=== PATIENT | female | born 1995 | race Hispanic/Latino ===

== ENCOUNTER 2017-07-04 13:31 | Emergency (ER) | payer OTHER, SELFPAY ==
--- NOTE | 2017-07-04 14:48 | ER ---
Nurse's Notes [facility] Unit Name: Carloz Rolle Age: 22 yrs Sex: Female : 1995 Arrival Date: 07/04/2017 Time: 13:34 Bed 13 Private MD: Diagnosis: Weakness Presentation: 07/04 13:42 Presenting complaint: Patient states: " Yesterday both of my hands and arms started ph feeling numb and heavy. It strted to feel like it was moving into my legs but they feel okay right now." Pt reports sage arm tingling and dizziness, picc nurse equal and strong, denies chest pain, SOB. Transition of care: patient was not received from another setting of care. Onset of symptoms was July 04, 2017. Risk Assessment: Do you want to hurt yourself or someone else? Patient reports no desire to harm self or others. Initial Sepsis Screen: Does the patient meet any 2 criteria? No. Patient's initial sepsis screen is negative. Does the patient have a suspected source of infection? No. Patient's initial sepsis screen is negative. Care prior to arrival: None. 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 - Social history:: Smoking status: Patient/guardian denies using tobacco. - Family history:: not pertinent. - Ebola Screening: : Patient denies travel to an Ebola-affected area in the 21 days before illness onset. Screenin:02 Abuse screen: Denies threats or abuse. Nutritional screening: No deficits noted. tw2 Tuberculosis screening: No symptoms or risk factors identified. Fall Risk None identified. Assessment: 14:50 General: Appears in no apparent distress. well groomed, Behavior is calm, cooperative, tw2 appropriate for age. Pain: Denies pain. Neuro: Level of Consciousness is awake, alert, obeys commands, Oriented to person, place, time, situation, Supervisor Film Processing are equal bilaterally Reports numbness since yesterday b/l hands. Cardiovascular: Denies chest pain, shortness of breath, Capillary refill < 3 seconds Patient's skin is warm and dry. Respiratory: Airway is patent Respiratory effort is even, unlabored, Respiratory pattern is regular, symmetrical. GI: No signs and/or symptoms were reported involving the gastrointestinal system. : No signs and/or symptoms were reported regarding the genitourinary system. EENT: No signs and/or symptoms were reported regarding the EENT system. Derm: No signs and/or symptoms reported regarding the dermatologic system. Skin is intact, is healthy with good turgor, Skin temperature is warm. Musculoskeletal: Circulation, motion, and sensation intact. Capillary refill < 3 seconds, Range of motion: intact in all extremities. 15:03 Reassessment: Patient appears in no apparent distress at this time. No changes from tw2 previously documented assessment. Patient and/or family updated on plan of care and expected duration. Pain level reassessed. Patient is alert, oriented x 3, equal unlabored respirations, skin warm/dry/pink. Vital Signs: 13:44 BP 123 / 91; Pulse 71; Resp 18; Temp 97.2; Pulse Ox 100% on R/A; Weight 71.67 kg; ph Height 5 ft. 2 in. (157.48 cm); 15:05 BP 125 / 76; Pulse 68; Resp 16; Pulse Ox 100% on R/A; tw2 13:44 Body Mass Index 28.90 (71.67 kg, 157.48 cm) ph NIH Stroke Scale Scores: 14:46 NIHSS Score: 0 helen ED Course: 13:34 Patient arrived in ED. mr 13:44 Triage completed. ph 13:45 Arm band placed on. ph 13:57 Yves Samayoa MD is Attending Physician. helen 13:59 Cecelia Harris, SALLY is Primary Nurse. tw2 14:50 Bed in low position. Call light in reach. Adult w/ patient. Pulse ox on. NIBP on. tw2 15:07 No provider procedures requiring assistance completed. Patient did not have IV access tw2 during this emergency room visit. Administered Medications: No medications were administered Outcome: 14:47 Discharge ordered by . helen 15:07 Discharged to home ambulatory, with significant other. tw2 15:07 Condition: stable 15:07 Discharge instructions given to patient, significant other, Instructed on discharge instructions, follow up and referral plans. Demonstrated understanding of instructions, follow-up care. 15:08 Patient left the ED. tw2 NIH Stroke Scale - NIH Stroke Score Date: 07/04/2017 Time: 14:46 Total Score = 0 1a. Level of Consciousness (LOC) - 0(Alert) 1b. Level of Consciousness (LOC) (Year \\T\\ Age) - 0(Both) 1c. LOC Commands (Open \\T\\ Closes Eyes/Oral And Maxillofacial Surgeon) - 0(Both) 2. Best Gaze (Lateral Gaze Paresis) - 0(Normal) 3. Visual Field Loss - 0(No visual loss) 4. Facial Palsy - 0(Normal) 5a. Left Arm: Motor (10-second hold) - 0(No drift) 5b. Right Arm: Motor (10-second hold) - 0(No drift) 6a. Left Leg: Motor (5-second hold - always test supine) - 0(No drift) 6b. Right Leg: Motor (5-second hold - always test supine) - 0(No drift) 7. Limb Ataxia (finger/nose \\T\\ heel/foss - test with eyes open) - 0(Absent) 8. Sensory Loss (pinprick arms/legs/face) - 0(Normal) 9. Best Language: Aphasia (description/naming/reading) - 0(No aphasia) 10. Dysarthria (speech clarity - read or repeat words) - 0(Normal) 11. Extinction and Inattention (visual/tactile/auditory/spatial/personal) - 0(No abnormality) Initials: helen Signatures: Yves Samayoa MD MD cha Rivera, Maria mr Michelle Alcantar, SALLY ZAVALA Cecelia Harris RN RN tw2
--- NOTE | 2017-07-04 14:48 | EDPHYS ---
Physician Documentation [facility] Name: Carloz Rolle Age: 22 yrs Sex: Female : 1995 Arrival Date: 07/04/2017 Time: 13:34 Bed 13 Private MD: ED Physician Yvse Samayoa HPI: 07/04 14:41 This 22 yrs old Female presents to ER via Ambulatory with complaints of helen Numbness Of Hand. 14:41 The patient or guardian reports weakness. The complaints affect the left hand helen diffusely, right hand diffusely. Context: The problem was sustained at an unknown location. Onset: The symptoms/episode began/occurred 2 day(s) ago. Modifying factors: The symptoms are alleviated by nothing, the symptoms are aggravated by nothing. Associated signs and symptoms: The patient has no apparent associated signs or symptoms. Severity of symptoms: At their worst the symptoms were mild, in the emergency department the symptoms are unchanged. The patient has not experienced similar symptoms in the past. 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 - Social history:: Smoking status: Patient/guardian denies using tobacco. - Family history:: not pertinent. - Ebola Screening: : Patient denies travel to an Ebola-affected area in the 21 days before illness onset. ROS: 14:41 Constitutional: Negative for fever, chills, and weight loss, Eyes: Negative for injury, helen pain, redness, and discharge, ENT: Negative for injury, pain, and discharge, Neck: Negative for injury, pain, and swelling, Cardiovascular: Negative for chest pain, palpitations, and edema, Respiratory: Negative for shortness of breath, cough, wheezing, and pleuritic chest pain, Abdomen/GI: Negative for abdominal pain, nausea, vomiting, diarrhea, and constipation, Back: Negative for injury and pain, : Negative for injury, bleeding, discharge, and swelling, Skin: Negative for injury, rash, and discoloration, Neuro: Negative for headache, weakness, numbness, tingling, and seizure, Psych: Negative for depression, anxiety, suicide ideation, homicidal ideation, and hallucinations, Allergy/Immunology: Negative for hives, rash, and allergies, Endocrine: Negative for neck swelling, polydipsia, polyuria, polyphagia, and marked weight changes, Hematologic/Lymphatic: Negative for swollen nodes, abnormal bleeding, and unusual bruising. 14:41 MS/extremity: Positive for generalized weakness. Exam: 14:41 Constitutional: This is a well developed, well nourished patient who is awake, alert, helen and in no acute distress. Head/Face: Normocephalic, atraumatic. Eyes: Pupils equal round and reactive to light, extra-ocular motions intact. Lids and lashes normal. Conjunctiva and sclera are non-icteric and not injected. Cornea within normal limits. Periorbital areas with no swelling, redness, or edema. ENT: Nares patent. No nasal discharge, no septal abnormalities noted. Tympanic membranes are normal and external auditory canals are clear. Oropharynx with no redness, swelling, or masses, exudates, or evidence of obstruction, uvula midline. Mucous membranes moist. Neck: Trachea midline, no thyromegaly or masses palpated, and no cervical lymphadenopathy. Supple, full range of motion without nuchal rigidity, or vertebral point tenderness. No Meningismus. Chest/axilla: Normal chest wall appearance and motion. Nontender with no deformity. No lesions are appreciated. Cardiovascular: Regular rate and rhythm with a normal S1 and S2. No gallops, murmurs, or rubs. Normal PMI, no JVD. No pulse deficits. Respiratory: Lungs have equal breath sounds bilaterally, clear to auscultation and percussion. No rales, rhonchi or wheezes noted. No increased work of breathing, no retractions or nasal flaring. Abdomen/GI: Soft, non-tender, with normal bowel sounds. No distension or tympany. No guarding or rebound. No evidence of tenderness throughout. Back: No spinal tenderness. No costovertebral tenderness. Full range of motion. Skin: Warm, dry with normal turgor. Normal color with no rashes, no lesions, and no evidence of cellulitis. MS/ Extremity: Pulses equal, no cyanosis. Neurovascular intact. Full, normal range of motion. Neuro: Awake and alert, GCS 15, oriented to person, place, time, and situation. Cranial nerves II-XII grossly intact. Motor strength 5/5 in all extremities. Sensory grossly intact. Cerebellar exam normal. Normal gait. Psych: Awake, alert, with orientation to person, place and time. Behavior, mood, and affect are within normal limits. 14:45 Musculoskeletal/extremity: DVT Exam: No signs of deep vein thrombosis. no pain, no helen swelling, no tenderness, negative Homans' sign noted on exam, no appreciated bluish discoloration, no erythema, no increased warmth. Vital Signs: 13:44 BP 123 / 91; Pulse 71; Resp 18; Temp 97.2; Pulse Ox 100% on R/A; Weight 71.67 kg; ph Height 5 ft. 2 in. (157.48 cm); 15:05 BP 125 / 76; Pulse 68; Resp 16; Pulse Ox 100% on R/A; tw2 13:44 Body Mass Index 28.90 (71.67 kg, 157.48 cm) ph NIH Stroke Scale Scores: 14:46 NIHSS Score: 0 helen MDM: 13:57 Patient medically screened. [facility] 14:46 Data reviewed: vital signs, nurses notes. [facility] 07/04 15:02 Order name: Urine Dipstick--Ancillary (enter results) 07/04 15:02 Order name: Urine --Ancillary (enter results) 07/04 14:41 Order name: Urine Dipstick-Ancillary (obtain specimen); Complete Time: 14:58 [facility] 07/04 14:41 Order name: Urine Test (obtain specimen); Complete Time: 14:58 [facility] Administered Medications: No medications were administered Disposition: 07/04/17 14:47 Discharged to Home. Impression: Weakness. - Condition is Stable. - Discharge Instructions: Weakness, Fatigue, Weakness, [id number]. - Medication Reconciliation Form, Thank You Letter, Antibiotic Education, Prescription Opioid Use form. - Follow up: Private Physician; When: 2 - 3 days; Reason: Recheck today's complaints, Continuance of care, Re-evaluation by your physician. - Problem is new. - Symptoms have improved. NIH Stroke Scale - NIH Stroke Score Date: 07/04/2017 Time: 14:46 Total Score = 0 1a. Level of Consciousness (LOC) - 0(Alert) 1b. Level of Consciousness (LOC) (Year \T\ Age) - 0(Both) 1c. LOC Commands (Open \T\ Closes Eyes/Investigative Writer) - 0(Both) 2. Best Gaze (Lateral Gaze Paresis) - 0(Normal) 3. Visual Field Loss - 0(No visual loss) 4. Facial Palsy - 0(Normal) 5a. Left Arm: Motor (10-second hold) - 0(No drift) 5b. Right Arm: Motor (10-second hold) - 0(No drift) 6a. Left Leg: Motor (5-second hold - always test supine) - 0(No drift) 6b. Right Leg: Motor (5-second hold - always test supine) - 0(No drift) 7. Limb Ataxia (finger/nose \T\ heel/foss - test with eyes open) - 0(Absent) 8. Sensory Loss (pinprick arms/legs/face) - 0(Normal) 9. Best Language: Aphasia (description/naming/reading) - 0(No aphasia) 10. Dysarthria (speech clarity - read or repeat words) - 0(Normal) 11. Extinction and Inattention (visual/tactile/auditory/spatial/personal) - 0(No abnormality) Initials: [facility] Signatures: Dispatcher [employer] EDYves Clark MD MD cha Hall, Patricia, RN RN Cecelia Harris RN RN tw2 Corrections: (The following items were deleted from the chart) 15:08 14:47 07/04/2017 14:47 Discharged to Home. Impression: Weakness. Condition is tw2 Stable. Forms are Medication Reconciliation Form, Thank You Letter, Antibiotic Education, Prescription Opioid Use. Follow up: Private Physician; When: 2 - 3 days; Reason: Recheck today's complaints, Continuance of care, Re-evaluation by your physician. Problem is new. Symptoms have improved. helen
[2017-07-04 15:07] LABS: Urine Blood NEGATIVE (NEG); Urine Glucose NEGATIVE (NEG); Urine Protein NEGATIVE (NEG); Urine Specific Gravity 1.015 (1.005-1.030)
== END 2017-07-04 15:08 | disposition home or self-care (01) ==
LOC: ER 13:31
DX: R53.1 Weakness (principal); Z91.018 Allergy to other foods
CPT/HCPCS: 81003; 81025; 99283

== ENCOUNTER 2019-03-31 00:54 | Emergency (ER) | payer OTHER, SELFPAY ==
--- OUTSIDE RECORDS SUMMARY | 2019-03-31 00:56 | XMS REPORT ---
:1995 [facility] [address] [place] [address] [place] [id number] Care Team Providers Name Role Phone Unavailable Unavailable Unavailable Problems This patient has no known problems. Allergies, Adverse Reactions, Alerts This patient has no known allergies or adverse reactions. Medications This patient has no known medications. Results Test Description Test Time Test Comments Text Results Atomic Results Result Comments BREAST ULTRASOUND 2018-07-11 15:32:05 - BREAST ULTRASOUND BILATERAL BILATERALULTRASOUND OF BOTH BREASTS AND BOTH AXILLA: 07/11/2018CLINICAL: 6 month follow up. Comparison is made to exams dated 12/27/2017 ultrasound and 01/16/2018 ultrasound - [facility]-. Real-time ultrasound of both breasts and both axilla was performed. A 2.6 x 2.7 x 3.3 cm oval mass with microlobulated margin is noted in the right breast at 5 o'clock, 7 cm from the nipple. 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 It is slightly increased in size compared to the previous ultrasound where it measured up to 3.1 cm in greatest diameter.A 3.8 x 3.6 x 3.6 cm oval hypoechoic mass with circumscribed margin is noted in the left breast at 3 o'clock, 2 cm from the nipple. It corresponds to the previously biopsied Fibroepithelial lesion with features of fibroadenoma. It is grossly unchanged compared to the previous ultrasound.Multiple bilateral oval masses with circumscribed margin are again noted, grossly unchanged compared to the previous ultrasounds. Except for a 3.0 x 3.0 x 2.0 cm oval hypoechoic mass in the right breast at 2 o'clock, 3 cm from the nipple, which has increased in size compared to the previous ultrasound where it measured up to 2.7 cm in greatest diameter.No other abnormalities were seen sonographically in either breast or either axilla. 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 Surgical consultation was recommended for excision the recommendation remains the same. The 3.8 cm mass in the left breast at 3 o'clock, 2 cm from the nipple corresponds to the previous the biopsied abnormality yielding fibroepithelial lesion with features of fibroadenoma. Given the size of this mass is surgical consultation was recommended and the recommendation remains the same. The 3.0 cm oval mass in the right breast at 2 o'clock, 3 cm from the nipple has slightly increased in size compared to the previous ultrasound were measured up to 2.7 cm. The remaining masses are grossly unchanged and are probably benign. A follow-up ultrasound in 6 months is recommended to demonstrate one-year of stability. Юлия Connor M.D. cc/:07/11/2018 15:32:05 Entry: - 07/13/2018 14:11:56copy to: Ms. Julianne Schuster, [facility] [address], ATTN: Julianne Schuster, ph: [phone], fax: [phone] Technologist: Josie QUINTEROS, [facility]-letter sent: Short Term Follow Up Ultrasound BI-RADS: 3 Probably benign BREAST ULTRASOUND CORE 2018-01-18 10:32:41 - BREAST ULTRASOUND CORE BIOPSY BIOPSY LEFT LEFTULTRASOUND GUIDED BIOPSY LEFT BREAST WITH MARKING DEVICE INSERTED AND POST ULTRASOUND IMAGIN01/16/2018CLINICAL: The 3.1 cm lobulated mass in the right breast at 5 o'clock, middle depth is at a low suspicion for malignancy. An ultrasound guided biopsy is recommended. The 4.1 cm oval mass in the left breast at 3 o'clock, middle depth is at a low suspicion for malignancy. An ultrasound guided biopsy is recommended. PATIENT CONSENT: The procedure along with risks, benefits, alternatives, anesthesia, plan and tissue marker placement were discussed with the patient. Following this, signed, witnessed informed concent was obtained. Comparison is made to exams dated 12/27/2017 ultrasound - [facility]- and 01/06/2015 ultrasound - [facility]. An ultrasound guided biopsy using real-time ultrasound was performed for the circumscribed oval mass located in the left breast at 3 o'clock, middle depth, 2 cm from the nipple. The skin was prepped in the usual manner. Local anesthetic was administered to the access site. A small incision was made in the breast. The abnormality was approached from the lateral aspect. A 14 gauge biopsy needle was placed adjacent to the abnormality through an introducer device under ultrasound guidance. Once the needle was documented to be in the correct location, three specimens were obtained using a Anywhere to Go biopsy device. A heart-shaped clip was inserted into the biopsy cavity. Post procedure ultrasound imaging was obtained. The specimens were sent to the laboratory for pathological analysis. IMPRESSION: ULTRASOUND GUIDED BIOPSYUltrasound guided biopsy of the mass in the left breast at 3 o'clock, middle depth, 2 cm from the nipple was successful. Waiting for pathology results. A final report will be issued when these become available. ADDENDUM:Pathology report the following:A. 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 Left breast 3 o'clock, 2 cm from the nipple biopsy:FIBROEPITHELIAL LESION WITH FEATURES OF FIBROADENOMAThe finding is concordant with imaging. A surgical consultation is recommended for excision of a phyllodes tumor on the right. Given the size of the mass in the left breast and the possibility of phyllodes tumor a surgical consult is also recommended.The patient should also return for follow-up of the additional smaller visualized masses with ultrasound in 6 months.Юлия Connor M.D. cc/:01/18/2018 10:32:41 Entry: cc - 01/19/2018 11:30:10copy to: Ms. Val Schuster, [facility] [address], ph: [phone], fax: [phone] Technologist: Kristen Medrano, [facility]-letter sent: Surgical Consult Recommended BREAST ULTRASOUND 2017-12-27 13:22:23 - BREAST ULTRASOUND BILATERAL BILATERALULTRASOUND OF BOTH BREASTS AND BOTH AXILLA: 12/27/2017CLINICAL: Bilateral breast masses, increasing in size. Comparison is made to exam dated 01/06/2015 ultrasound - [facility]. Real-time ultrasound of both breasts and both axilla was performed. There is a 3.1 x 2.0 x 1.9 cm lobulated mass with a circumscribed margin in the right breast at 5 o'clock, middle depth, 7 cm from the nipple. This lobulated mass is hypoechoic. Color flow imaging demonstrates that there is vascularity present. This mass is palpable and the patient reports is new. It was not visualized on previous ultrasounds.There is a 4.1 x 2.7 x 2.8 cm oval mass with a circumscribed margin in the left breast at 3 o'clock, middle depth, 2 cm from the nipple. This oval mass is hypoechoic. It correlates with the enlarging mass palpated by the patient. Color flow imaging demonstrates that there is vascularity present. This mass has increased in size compared to the previous ultrasound where it measured up to 1.9 cm.Several other masses are noted bilaterally as follows:Left breast:1.4 x 1.5 x 0.9 cm mass at 12 o'clock, 4 cm from the nipple, stable since [address] adjacent masses measuring 1.2 x 1.1 x 0.6 cm and 0.9 x 0.5 by 1.0 cm at 12 o'clock, 1 cm from the nipple0.7 x 0.8 x 0.4 cm mass at 12-1 o'clock, 2 cm from the nipple, stable since 2014. Other additional masses measuring 1.0 x 0.3 x 0.5 cm and 0.6 x 0.6 x 0.4 cm are noted in this same location.0.8 x 0.9 x 0.5 cm mass at 3 o'clock, 1 cm from the nipple0.9 x 0.6 x 0.7 cm mass at 5 o'clock, 3 cm from the nipple0.9 x 0.5 x 1.2 cm mass at 7 o'clock, 3 cm from the nipple0.8 x 0.4 x 0.8 cm mass at 9 o'clock, 5 cm from the nippleRight breast:1.8 x 1.6 x 1.4 cm mass at 12 o'clock, 4 cm from the nipple, unchanged since [address].4 x 1.4 x 0.8 cm mass at 12 o'clock, 2 cm from the nipple, grossly unchanged since 2015. A new oval mass measuring 1.6 x 1.2 x 1.6 cm is also noted in this same location1.1 x 1.1 x 0.7 cm mass at 12-1 o'clock, 4 cm from the nipple2 adjacent masses measuring 1.6 x 1.7 x 1.1 cm and 2.4 x 1.7 x 2.7 cm at 2 o'clock, 3 cm from the nipple, grossly unchanged compared to the previous ultrasound.2.3 x 0.7 x 2.3 cm mass at 8 o'clock, 3 cm from the nipple, stable since [address].7 x 0.4 x 0.8 cm mass at 9 o'clock, 1 cm from the nipple0.9 x 0.5 x 0.9 cm mass at 11 o'clock, 3 cm from the nippleNo other abnormalities were seen sonographically in either breast or either axilla. IMPRESSION: SUSPICIOUS OF MALIGNANCY - FOLLOW-UP RECOMMENDEDThe 3.1 cm lobulated mass in the right breast at 5 o'clock, middle depth is at a low suspicion for malignancy. An ultrasound guided biopsy is recommended. The 4.1 cm oval mass in the left breast at 3 o'clock, middle depth is at a low suspicion for malignancy. An ultrasound guided biopsy is recommended. The masses in the right breast at 12 o'clock, 4 cm from the nipple, 12 o'clock, 2 cm from the nipple and 2 o'clock, 3 cm from the nipple and left breast at 12 o'clock, 4 cm from the nipple and 12-1 o'clock, 2 cm from the nipple are stable since 2014 and are benign per stability. The remaining masses are probably benign. Ultrasound is recommended in 6 months to document stability.Юлия Connor M.D. cc/:12/27/2017 13:22:23 Entry: cc - 01/04/2018 12:27:08copy to: Ms. Val Schuster, [facility] [address], ph: [phone], fax: [phone] Technologist: Mindi QUINTEROS, [facility]-RGletter sent: BIRADS 4/5 Biopsy Ultrasound BI-RADS: 4a Suspicious abnormality - low suspicion for malignancy
--- OUTSIDE RECORDS SUMMARY | 2019-03-31 00:56 | XMS REPORT | Summary of Care ---
:1995 Author Organization [facility] - [facility] Address [address] [place] [address] Care Team Providers Name Role Phone Rayne Ramos Primary Care Provider Reason for Referral (Routine) Status Reason Specialty Diagnoses / Referred By Referred To Procedures Contact Contact New Request Surgery Diagnoses Lump or mass in breast Claudine Winston, Procedures CONSULT/REFERRAL BREAST SURGERY [address] [address] Reason for Visit Reason Comments Breast Problem (Routine) Status Reason Specialty Diagnoses / Referred By Referred To Procedures Contact Contact New Request Obstetrics & Diagnoses Lump or mass in breast Richard, Gynecology Procedures CONSULT/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 (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) SARAHY Tellez [address] [place] [address] Encounter Details Date Type Department Care Team Description 09/22/2018 Office Visit [facility] Claudine Winston MD [address] [address] Lump or mass in [facility] Resident breast (Primary Dx) [facility] [address] [facility], 7th [place] [address] Allergies No Known Allergiesdocumented as of this encounter (statuses as of 09/22/2018) Medications No known medicationsdocumented as of this encounter (statuses as of 09/22/2018) Active Problems Problem Noted Date Nexplanon in place 07/01/2017 Obesity (BMI 30.0-34.9) 06/22/2016 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 documented as of this encounter (statuses as of 09/22/2018) Resolved Problems Problem Noted Date Resolved Date Nexplanon insertion 09/29/2016 07/01/2017 Other general counseling and advice for contraceptive 09/02/2016 07/01/2017 management BMI 26.0-26.9,adult 06/25/2015 06/22/2016 Acute cystitis without hematuria 06/25/2015 06/22/2016 General counseling and advice for contraceptive management 06/14/20142016 Overview: ICD10 Diagnosis Term 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 Impression: probably benign, most likely fibroadenomas. Recommend followup bilateral breast USG in 6 months. documented as of this encounter (statuses as of 09/22/2018) Immunizations Name Administration Dates Next Due HPV 02/08/2016 TDAP (ADACEL) VACCINE 02/07/2009 documented as of this encounter Social History Tobacco Use Types Packs/Day Years Used Date Never Smoker Smokeless Tobacco: Never Used Alcohol Use Drinks/Week oz/Week Comments No 0 Standard drinks or equivalent 0.0 Sex Assigned at Date Recorded Not on file Job Start Date Occupation Industry Not on file Not on file Not on file Travel History Travel Start Travel End No recent travel history available. documented as of this encounter Last Filed Vital Signs Vital Sign Reading Time Taken Comments Blood Pressure 120/74 09/22/2018 3:21 PM CDT Pulse 91 09/22/2018 3:21 PM CDT Temperature 36.8 C (98.3 F) 09/22/2018 3:21 PM CDT Respiratory Rate 18 09/22/2018 3:21 PM CDT Oxygen Saturation - - Inhaled Oxygen Concentration - - Weight 83 kg (183 lb 1 oz) 09/22/2018 3:21 PM CDT Height 160 cm (5' 3") 09/22/2018 3:21 PM CDT Body Mass Index 32.43 09/22/2018 3:21 PM CDT documented in this encounter Progress Notes Barrera Koenig MD - 09/22/2018 3:15 PM CDT Chief complaint: Chief Complaint Patient presents with Breast Problem Carloz Rolle is a 23 year old female who presents for evaluation of fibroadenomas. She has previously been evaluated for these masses with ultrasounds, mammograms, and core needle biopsy. She was advised to come here for further evaluation. Histories OB History Para Term AB Living 0 0 0 0 0 0 SAB TAB Ectopic Multiple Live Births 0 0 0 0 Past Medical History: Diagnosis Date 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 Family History Problem Relation Age of Onset Diabetes Maternal Grandmother Arthritis NoFHx Asthma NoFHx defects NoFHx Breast Cancer NoFHx Colon Cancer NoFHx Ovarian Cancer NoFHx Uterine Cancer NoFHx Cancer NoFHx Depression NoFHx Genetic NoFHx Heart NoFHx High cholesterol NoFHx Hypertension NoFHx Mental retardation NoFHx Neurological NoFHx Osteoporosis NoFHx Psychiatry NoFHx Other - see comments NoFHx Family Status Relation Name Status MGMo (Not Specified) NoFHx (Not Specified) No past surgical history on file. Social History Socioeconomic History Marital status: Single Spouse name: Not on file Number of children: Not on file Years of education: Not on file Highest education level: Not on file Occupational History Occupation: student Social Needs Financial resource strain: Not on file Food insecurity: Worry: Not on file Inability: Not on file Transportation needs: Medical: Not on file Non-medical: Not on file Tobacco Use Smoking status: Never Smoker Smokeless tobacco: Never Used Substance and Sexual Activity Alcohol use: No Alcohol/week: 0.0 oz Drug use: No Sexual activity: Yes Partners: Male control/protection: Implant Comment: last intercourse 06/30/2017 Lifestyle Physical activity: Days per week: Not on file Minutes per session: Not on file Stress: Not on file Relationships Social connections: Talks on phone: Not on file Gets together: Not on file Attends buddhism service: Not on file Active member of club or organization: Not on file Attends meetings of clubs or organizations: Not on file Relationship status: Not on file Intimate partner violence: Fear of current or ex partner: Not on file Emotionally abused: Not on file Physically abused: Not on file Forced sexual activity: Not on file Other Topics Concern Service Not Asked Blood Transfusions No Caffeine Concern Not Asked Occupational Exposure Not Asked Hobby Hazards Not Asked Sleep Concern Not Asked Stress Concern Not Asked Weight Concern Not Asked Special Diet Not Asked Back Care Not Asked Exercise Not Asked Bike Helmet Not Asked Seat Belt Not Asked Self-Exams Not Asked Social History Narrative No domestic violence or abuse. Social History Substance and Sexual Activity Sexual Activity Yes Partners: Male control/protection: Implant Comment: last intercourse 06/30/2017 Labs No new labs Radiology I have reviewed the patient's radiology. Ultrasounds, mammogram, core needle bx Allergies Carloz has No Known Allergies. Medications Carloz currently has no medications in their medication list. Review of Systems Constitutional: Negative. Respiratory: Negative. Negative for shortness of breath. Breasts: Positive for mass and pain. Cardiovascular: Negative. Negative for chest pain. Gastrointestinal: Negative for abdominal pain, blood in stool, constipation, diarrhea, nausea and vomiting. Genitourinary: Negative. BP 120/74 (BP Location: Right arm, Patient Position: Sitting, BP CUFF SIZE: Adult Medium) | Pulse 91 | Temp 36.8 C (98.3 F) (Oral) | Resp 18 | Ht 5 ' 3" (1.6 m) | Wt 183 lb 1 oz (83 kg) | LMP 09/22/2018 | BMI 32.43 kg/m Pregravid BMI: Could not be calculated Physical Exam Constitutional: Vital signs are normal. She appears well-developed and well- nourished. Cardiovascular: Regular rhythm. Pulmonary/Chest: Normal inspiratory effort. No respiratory distress. Abdominal: Abdomen is soft. Normal appearance. No tenderness present. 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 - She was told to be evaluated for possible breast surgery and sent here - She was counseled that we do not perform breast surgery, and a consult will be placed to a breast surgeon. D/w Dr. Catrachito This visit did not involve counseling and coordination that comprised more than 50% of the visit time. documented in this encounter Plan of Treatment Health Maintenance Due Date Last Done Comments MENINGOCOCCAL B VACCINES (1 of 2007 2 - Risk Bexsero 2-dose series) VARICELLA VACCINES (1 of 2 - 2010 13+ 2-dose series) HPV VACCINES (2 - Female 03/07/2016 02/08/2016 3-dose series) PAP SMEAR 2018 CHLAMYDIA SCREENING 07/01/2018 07/01/2017, 06/22/2016, 06/25/2015 INFLUENZA VACCINE (#1) 2018 DTaP,Tdap,and Td Vaccines (2 - 02/07/2019 02/07/2009 Td) MENINGOCOCCAL VACCINE Aged Out No longer eligible based on patient's age to complete this topic PNEUMOCOCCAL 0-64 YEARS Aged Out No longer eligible based COMBINED SERIES on patient's age to complete this topic documented as of this encounter Results Not on filedocumented in this encounter Visit Diagnoses Diagnosis Lump or mass in breast - Primary documented in this encounter Advance Directives Name Relationship Healthcare Agent Relationship Communication Jose Alejandro Francois Life Partner Primary healthcare agent Lanie Amaya Sibling First alternate healthcare agent
--- OUTSIDE RECORDS SUMMARY | 2019-03-31 00:57 | XMS REPORT | Summary of Care ---
:1995 Author Organization [facility] - [facility] Address [address] [place] [address] Care Team Providers Name Role Phone Rayne Ramos Primary Care Provider Reason for Referral (Routine) Status Reason Specialty Diagnoses / Referred By Referred To Procedures Contact Contact New Request Surgery Diagnoses Lump or mass in breast Claudine Winston, Procedures CONSULT/REFERRAL BREAST SURGERY [address] [address] Reason for Visit Reason Comments Breast Problem (Routine) Status Reason Specialty Diagnoses / Referred By Referred To Procedures Contact Contact New Request Obstetrics & Diagnoses Lump or mass in breast Richard, Gynecology Procedures 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) SARAHY Tellez [address] [place] [address] Encounter Details Date Type Department Care Team Description 09/22/2018 Office Visit [facility] Claudine Winston MD [address] [address] Lump or mass in [facility] Resident breast (Primary Dx) [facility] [address] [facility], [address]th [place] [address] Allergies No Known Allergiesdocumented as [...] contraceptive management 06/14/20142016 Overview: ICD10 Diagnosis Term 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
--- OUTSIDE RECORDS SUMMARY | 2019-03-31 00:57 | XMS REPORT | Summary of Care ---
:1995 Author Organization [facility] - Health Address [address] [place] [address] Care Team Providers Name Role Phone TayecherRayne rizzo [facility] Primary Care Provider Encounter Details Date Type Department Care Team Description 10/05/2018 Orders Only [facility] Doctor Unassigned, No [address] [facility] [place] [address] [address] [place] [address] Allergies No Known Allergiesdocumented as of this encounter (statuses as of 10/05/2018) Medications No known medicationsdocumented as of this encounter (statuses as of 10/05/2018) Active Problems Problem Noted Date Nexplanon in place 07/01/2017 Obesity (BMI 30.0-34.9) 06/22/2016 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 documented as of this encounter (statuses as of 10/05/2018) Resolved Problems Problem Noted Date Resolved Date Nexplanon insertion 09/29/2016 07/01/2017 Other general counseling and advice for contraceptive 09/02/2016 07/01/2017 management BMI 26.0-26.9,adult 06/25/2015 06/22/2016 Acute cystitis without hematuria 06/25/2015 06/22/2016 General counseling and advice for contraceptive management 06/14/20142016 Overview: ICD10 Diagnosis Term Material Coordinator Utility Lump or mass in breast 03/24/2014 06/22/2016 Overview: Breast USG from OSH scanned into [facility] (03/07/14): Multiple and circumscribed and hypoechoic masses seen in right and left breasts. Impression: probably benign, most likely fibroadenomas. Recommend followup bilateral breast USG in 6 months. documented as of this encounter (statuses as of 10/05/2018) Immunizations Name Administration Dates Next Due HPV [...] of this encounter Last Filed Vital Signs Not on filedocumented in this encounter Plan of Treatment Date Type Specialty Care Team Description 10/18/2018 Office Visit Surgery Aicha Connors [address] [place] [address] [id number] [place] [address] [phone] Health Maintenance Due Date Last Done Comments [...] this topic documented as of this encounter Procedures Procedure Name Priority Date/Time Associated Diagnosis Comments NO SHOW OR MISSED Routine 10/05/2018 3:28 PM APPOINTMENT POLICY CDT ACKNOWLEDGEMENT documented in this encounter Results Not on filedocumented in this encounter Insurance Payer Benefit Plan Subscriber ID Effective Phone Address Type / Group Dates [facility] xxxxxxxxx 2016-Prese [phone] Medicaid WOMEN [address] [place] [address] documented as of this encounter Advance Directives Name Relationship Healthcare Agent Relationship Communication Jose Alejandro Francois Life Partner Primary healthcare agent Lanie Amaya Sibling First alternate healthcare agent
[2019-03-31] MEDS ORDERED: CEFTRIAXONE 1000 MG/VIAL ONE (01:24)
[2019-03-31] MEDS ORDERED: ACETAMINOPHEN 325 MG TABLET ONE (01:44)
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
[2019-03-31 03:36] LABS: Urine Blood 1+ (NEG); Urine Glucose NEGATIVE (NEG); Urine Protein NEGATIVE (NEG); Urine Specific Gravity 1.025 (1.005-1.030); Urine pH 5.5 (5.0-7.0)
[2019-03-31 05:08] VITALS: O2SAT 100
[2019-03-31 05:10] VITALS: BP 131/89; TEMP 98
--- NOTE | 2019-03-31 10:40 | RAD REPORT ---
EXAM DESCRIPTION: CT - Head Brain Wo Cont - 03/31/2019 6:07 am CLINICAL HISTORY: Dizziness;Headache COMPARISON: None. 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 FINDINGS: There is no acute hemorrhage, mass effect or midline shift. Sheridan-white differentiation is preserved. There is no hydrocephalus. There is no significant volume loss for age. The calvarium is intact. Orbits and globes are unremarkable. The paranasal sinuses are clear. Mastoid air cells are clear. IMPRESSION: No acute intracranial findings. Electronically signed by: Jason Christianson MD 03/31/2019 1:55 AM BAD CLOTH CHECKER Due to temporary technical issues with the PACS/Fluency reporting system, reports are being signed by the in house radiologist as a courtesy to ensure prompt reporting. The interpreting radiologist is f ully responsible for the content of the report.
== END 2019-03-31 02:14 | disposition home or self-care (01) ==
LOC: ER 00:54
DX: S00.90XA Unspecified superficial injury of unspecified part of head, initial encounter (principal); Y04.2XXA Assault by strike against or bumped into by another person, initial encounter; Y93.89 Activity, other specified; Y92.89 Other specified places as the place of occurrence of the external cause; F17.210 Nicotine dependence, cigarettes, uncomplicated; Z91.018 Allergy to other foods
CPT/HCPCS: 70450; 81003; 81025; 99283